=== PATIENT | male | born 1990 | race Two or more races ===

== ENCOUNTER 2023-09-04 13:46 | Emergency (ER) | payer BC, OTHER ==
[~2023-09-04] VITALS: Ht 170.2 cm; Wt 109.0 kg
[2023-09-04 14:09] VITALS: BP_DIAS 64
[2023-09-04] MEDS: ALBUTEROL SULF 2.5 MG/0.5ML(0.5%) NEB SOLN NEB ONE (14:27)
[2023-09-04] MEDS: LORazepam 2MG/ML-1ML VIAL IV ONE ×2 (14:33→18:20)
[2023-09-04 14:36] LABS: Basophils # (auto) 0 10 ^3/uL (0-0.2); Basophils % (auto) 0.3 % (0.0-2.0); Eosinophils # (auto) 0 10 ^3/uL (0-0.8); Eosinophils % (auto) 0.3 % (0.0-7.0); Hematocrit 47.4 % (41.0-53.0); Hemoglobin 16.5 g/dL (13.5-17.5); Lymphocytes # (auto) 0.5 10 ^3/uL (0.4-5.4); Lymphocytes % (auto) 10.3 % (10.0-50.0); Mean Corpuscular Hemoglobin 30.3 pg (28.0-32.0); Mean Corpuscular Hgb Conc. 34.9 g/dL (32.0-36.0); Monocytes # (auto) 0.3 10 ^3/uL (0-1.3); Monocytes % (auto) 5.2 % (0.0-12.0); Neutrophils # (auto) 4.3 10 ^3/uL (1.6-8.6); Neutrophils % (auto) 83.9 % (37.0-80.0); Nucleated Red Blood Cells % 0.1 %; Red Blood Cells 5.45 10^6/uL (4.5-5.90); Red Cell Distribution Width 13.4 % (11.8-14.3); White Blood Cell 5.2 10^3/uL (4.4-10.8)
[2023-09-04 14:39] VITALS: BP_SYST 57; PULSE 101; RESP 19; TEMP 97.7; O2SAT 99
[2023-09-04 14:53] LABS: Alanine Aminotransferase 54 U/L (7-40); Albumin 4.5 g/dL (3.2-4.8); Alkaline Phosphatase 84 U/L (46-116); Anion Gap 11 (5-15); Aspartate Aminotransferase 51 U/L (13-40); BUN/Creatinine Ratio 10.4 (10.0-20.0); Blood Urea Nitrogen 14 mg/dL (9-23); Calcium 9.6 mg/dL (8.5-10.1); Carbon Dioxide 22 mmol/L (20-30); Chloride 104 mmol/L (98-107); Glucose 118 mg/dL (74-106); Potassium 3.9 mmol/L (3.5-5.1); Sodium 137 mmol/L (136-145)
[2023-09-04 14:54] LABS: Total Protein 7.1 g/dL (5.7-8.2)
[2023-09-04] MEDS ORDERED: IOHEXOL 350 MG/ML 100ML IJ ONE (20:15)
[2023-09-06] MEDS ORDERED: ALBU108A5 IN (21:47)
[2023-09-06] MEDS ORDERED: PROM1SOL4 PO (21:47)
== END 2023-09-05 01:00 | disposition left against medical advice (07) ==
LOC: ER 13:46
DX: R06.00 Dyspnea, unspecified (principal); R50.9 Fever, unspecified; R53.1 Weakness
CPT/HCPCS: 36415; 71275; 80053; 82553; 84484; 85025; 94640; 96374; 96376; 99285; J2060; Q9967; 93005

== ENCOUNTER 2023-09-06 18:17 | Emergency (ER) | payer BC ==
[~2023-09-06] VITALS: Ht 170.2 cm; Wt 109.0 kg
[2023-09-06 18:42] LABS: Basophils # (auto) 0 10 ^3/uL (0-0.2); Basophils % (auto) 0.7 % (0.0-2.0); Eosinophils # (auto) 0.3 10 ^3/uL (0-0.8); Eosinophils % (auto) 5.3 % (0.0-7.0); Hematocrit 47.7 % (41.0-53.0); Hemoglobin 16.5 g/dL (13.5-17.5); Lymphocytes # (auto) 1.1 10 ^3/uL (0.4-5.4); Lymphocytes % (auto) 19.1 % (10.0-50.0); Mean Corpuscular Hemoglobin 30.2 pg (28.0-32.0); Mean Corpuscular Hgb Conc. 34.7 g/dL (32.0-36.0); Mean Corpuscular Volume 87.1 fL (80.0-100.0); Monocytes # (auto) 0.8 10 ^3/uL (0-1.3); Monocytes % (auto) 13.4 % (0.0-12.0); Neutrophils # (auto) 3.6 10 ^3/uL (1.6-8.6); Neutrophils % (auto) 61.5 % (37.0-80.0); Nucleated Red Blood Cells % 0.4 %; Red Blood Cells 5.47 10^6/uL (4.5-5.90); Red Cell Distribution Width 13.1 % (11.8-14.3); White Blood Cell 5.8 10^3/uL (4.4-10.8)
[2023-09-06 18:51] LABS: INR 0.98 (0.9-1.15); Partial Thromboplastin Time 26.5 SEC (24.5-34.5); Prothrombin Time 10.4 sec (9.3-11.8)
[2023-09-06 18:54] LABS: Alanine Aminotransferase 84 U/L (7-40); Albumin 4.2 g/dL (3.2-4.8); Alkaline Phosphatase 133 U/L (46-116); Anion Gap 5 (5-15); Aspartate Aminotransferase 83 U/L (13-40); BUN/Creatinine Ratio 15.2 (10.0-20.0); Bilirubin, Total 0.6 mg/dL (0.2-1.0); Blood Urea Nitrogen 17 mg/dL (9-23); Calcium 8.9 mg/dL (8.5-10.1); Carbon Dioxide 29 mmol/L (20-30); Chloride 106 mmol/L (98-107); Glucose 99 mg/dL (74-106); Sodium 140 mmol/L (136-145); Total Protein 6.7 g/dL (5.7-8.2)
[2023-09-06] MEDS: ALBUTEROL SULF 2.5 MG/0.5ML(0.5%) NEB SOLN NEB ONE (20:19)
[2023-09-06] MEDS: IPRATROPIUM BROM 0.5 MG/2.5ML INH SOL NEB ONE (20:19)
[2023-09-06] MEDS: KETOROLAC TROMETH 30 MG/ML 1ML VIAL IM ONE (20:28)
[2023-09-06] MEDS: methylPREDNISolone SOD SUCC 125 MG/2 ML VL IM ONE (20:28)
[2023-09-06] MEDS ORDERED: ALBU108A5 IN (21:47)
[2023-09-06] MEDS ORDERED: PROM1SOL4 PO (21:47)
[2023-09-06 21:49] VITALS: BP 105/80; PULSE 81; RESP 16; TEMP 98.9; O2SAT 100
== END 2023-09-06 21:56 | disposition home or self-care (01) ==
LOC: ER 18:17
DX: J06.9 Acute upper respiratory infection, unspecified (principal); R07.89 Other chest pain; Z79.899 Other long term (current) drug therapy
CPT/HCPCS: 36415; 71045; 80053; 84484; 85025; 85610; 85730; 93005; 94640; 96372; 99285; J1885; J2930; J7644